=== PATIENT | male | born 1975 | race Caucasian/White ===

== ENCOUNTER 2024-02-05 20:01 | Emergency (ER) | payer SELFPAY ==
[~2024-02-05] VITALS: Ht 182.9 cm; Wt 98.0 kg
[2024-02-05 20:10] VITALS: BP 175/117; PULSE 108; RESP 18; TEMP 98.2; O2SAT 96
[2024-02-05] MEDS: TETANUS, DIPHTHERIA, PERTUSSIS VAC/PF 0.5ML (>10YR OLD) IM ONE (21:15)
[2024-02-05] MEDS: LIDOCAINE HCL/PF 1% 10 MG/ML 5ML VIAL INFIL NR (21:15)
[2024-02-05] MEDS: BACITRACIN ZINC OINT UDPKT TOP NR (21:15)
== END 2024-02-05 22:42 | disposition left against medical advice (07) ==
LOC: ER 20:01 → EDBD 20:01 → ER 22:42
DX: S01.81XA Laceration without foreign body of other part of head, initial encounter (principal); W18.39XA Other fall on same level, initial encounter; Y93.89 Activity, other specified; Y92.89 Other specified places as the place of occurrence of the external cause; Y99.8 Other external cause status
CPT/HCPCS: 90715; 12013; 90471; 99283; J3490; Z7610 ×3